=== PATIENT | male | born 1965 | race Caucasian/White ===

== ENCOUNTER → 2024-06-17 16:50 | Outpatient (REF) | payer OTHER, SELFPAY | LOC: RAD 16:50 | PROVIDERS: ATTENDING PHYSICIAN Family Medicine | DX: Z87.891 Personal history of nicotine dependence (principal); E78.2 Mixed hyperlipidemia; Z72.0 Tobacco use | CPT/HCPCS: 71271 ==

== ENCOUNTER → 2024-10-27 06:17 | Day surgery (SDC) | payer OTHER, SELFPAY | LOC: GI 06:17 | PROVIDERS: ATTENDING PHYSICIAN Internal Medicine; FAMILY PHYSICIAN Family Medicine | DX: Z12.11 Encounter for screening for malignant neoplasm of colon (principal); K64.8 Other hemorrhoids; K57.30 Diverticulosis of large intestine without perforation or abscess without bleeding; Z86.0100 Personal history of colon polyps, unspecified | CPT/HCPCS: G0105 ==

== ENCOUNTER → 2025-02-19 17:19 | Outpatient (REF) | payer OTHER, SELFPAY | LOC: RAD 17:19 | PROVIDERS: ATTENDING PHYSICIAN Family Medicine | DX: R59.1 Generalized enlarged lymph nodes (principal); N28.1 Cyst of kidney, acquired; R31.9 Hematuria, unspecified | CPT/HCPCS: 76882 ==

== ENCOUNTER → 2025-03-05 15:03 | Outpatient (REF) | payer OTHER, SELFPAY | LOC: RAD 15:03 | PROVIDERS: ATTENDING PHYSICIAN Family Medicine | DX: N28.1 Cyst of kidney, acquired (principal); R31.9 Hematuria, unspecified; R59.1 Generalized enlarged lymph nodes | CPT/HCPCS: 76770 ==

== ENCOUNTER → 2025-03-17 13:43 | Outpatient (REF) | payer OTHER, SELFPAY | LOC: RAD 13:43 | PROVIDERS: ATTENDING PHYSICIAN Family Medicine | DX: N50.812 Left testicular pain (principal) | CPT/HCPCS: 76870; 93976 ==

== ENCOUNTER 2025-03-19 08:20 | Emergency (ER) | payer OTHER, SELFPAY ==
[2025-03-19 08:27] VITALS: BP 131/93
--- NOTE | 2025-03-19 09:12 | ED.GENMED ---
History of Present Illness
General
Chief Complaint: Swelling
Source: patient
Exam Limitations: none
Time Seen by Provider: 03/19/25 08:40
Nursing documentation reviewed up to this point in time: agreed with
History of Present Illness
History of Present Illness:
Pt is a 59 yr old with past history prostate cancer presents to the ER for evaluation. Patient reports the past 6 weeks he has had swollen lymph nodes in his bilateral groin. He had an ultrasound of his right groin several weeks ago and
completed several doses of antibiotics. His last round was last week. He reports he had an ultrasound of his scrotum on Sunday which was abnormal and is scheduled for an MRI next week. Patient reports today he has noticed increasing discomfort
to the swelling lymph nodes of his left groin and also has left testicle pain.
I reviewed the ultrasound of the scrotum from 2 days ago which does show prominent left epididymis with relative increased left epididymal flow suggesting left epididymitis. In addition there is mild heterogeneous appearance of the right testicle
and cannot exclude right testicular mass or other etiology such as a hematoma and MRI is recommended.
In addition patient complains of some right sided abdominal pain which is what prompted him to come actually come to the ER today.
He denies any associated nausea vomiting fever chills.
Past History
Past History
ED Past Medical History: Arrthythmia and CHF
ED Past Surgical History: Other
Social History
Tobacco: Non-smoker
Alcohol: Binge drinker
Drug: None
Personal:
Living: with family
Employment: Employed
Family History
Family History: Other
Review of Systems
Review of Systems
Allergies reviewed?: Yes
All Other Systems: ROS reviewed and negative except as documented in HPI and ROS
Constitutional: Reports no symptoms; Denies fever, fatigue or chills
EENT: Reports no symptoms
Respiratory: Reports no symptoms
ABD/GI: Reports other (Patient had an episode of right abdominal pain today that radiated to his back denies now.)
: Reports other (Left testicular ;discomfort bilateral groin lymph node swelling)
Musculoskeletal: Reports no symptoms
Phy Exam
General Physical Exam
General Presentation: no apparent distress
General age: appears stated age
General Skin: warm and dry
General Habitus: normal
General Mental: alert
General Hydration: appears well hydrated
Gastrointestinal Exam
Gastrointestinal Exam: normal bowel sounds, soft and other (small area of yellowish discoloration to right abd( possible old healing bruising ) mildly tender on exam no rebound no guarding )
Genitourinary Exam Male
Exam Male: circumcised, no discharge, no evidence of trauma and other (mild left testicular tenderness no obvious swelling , small b/l palpable lymph nodes to bilateral groin )
Neurological Exam
Neurological Exam: alert and oriented x3
Musculoskeletal Exam
Musculoskeletal Exam: full ROM
Skin Exam
Skin Exam: normal color and warm/dry
Psychiatric Exam
Psychiatric Exam: normal mood/affect
Scores
Heart Failure Risk
Heart Failure Risk Score: Not Applicable
Course
Orders/Labs/Results
Orders:
Orders
03/19/25 09:15
IV Insert/Care/Rem.- Treatment PRN
03/19/25 09:28
Complete Blood Count/With Diff Urgent
Comprehensive Metabolic Panel Urgent
03/19/25 10:17
CT Abd/pelvis W Iv Cont Urgent
Comment:
Reason For Exam: lymh node swelling/abd/r back pain
03/19/25 10:47
UA Reflex to Culture [Urinalysis Reflex To Culture] Urgent
Date Specimen was Collected: 03/19/25
Time Specimen was Collected: 10:34
Abnormal Lab Results
03/19/25
09:28
RBC 4.69 L 10^6/uL
(4.70-6.10)
Hct 38.9 L %
(39.0-52.0)
MPV 10.9 H fL
(7.4-10.4)
Monocytes % 10.5 H %
(1.7-9.3)
Eosinophils % 6.5 H %
(0-6)
Chloride 108 H mmol/L
(98-107)
Creatinine 0.6 L mg/dL
(0.7-1.3)
Glucose 100 H mg/dl
(70-99)
03/19/25 09:28
03/19/25 09:28
Vital Signs
Initial and Last Documented VS:
Initial Vital Signs
Temp Pulse Resp BP Pulse Ox
98.3 F 94 18 131/93 97
03/19/25 08:27 03/19/25 08:27 03/19/25 08:27 03/19/25 08:27 03/19/25 08:27
Last Documented Vital Signs
Temp Pulse Resp BP Pulse Ox
98.3 F 77 18 131/93 96
03/19/25 08:27 03/19/25 12:00 03/19/25 08:27 03/19/25 08:27 03/19/25 12:00
Parts Sales Manager consulted with Physician
Parts Sales Manager consulted with physician?: Yes
Name of Physician Consulted: Johana
MDM/Problems Addressed
MDM/Problems Addressed:
Patient is a 59-year-old male as documented has had swelling to his lymph nodes in his groin for the past several weeks. He was treated with 2 of antibiotics he believes 1 was a quinolone normal was a type of penicillin. He has completed both of
these antibiotics. In addition he has had left-sided testicle swelling. Patient saw his family doctor and is scheduled for an MRI next week but presented for some right-sided abdominal pain. I did review patient's outpatient ultrasound from March 17
which does show findings consistent with left epididymitis and additional findings of heterogeneous appearance of the right testicle patient will need MRI for this.
Patient denies any fever chills his white count is unremarkable, normal renal function negative UA.
CAT scan done here in the ER with no acute findings.
With recent ultrasound still showing epididymitis the left testicle will restart on any course of antibiotics. Case discussed ED physician will start on Bactrim with supportive underwear Tylenol as needed. Patient cannot take ibuprofen as he is on
anticoagulation. Discussed with patient follow-up with urology for this in addition he is to follow-up with his outpatient MRI
*Radiology
Radiology exam reviewed: radiology read reviewed
*Critical Care Note
Total Time (30-74mins, 75-104mins- exclusive of procedures): Not Applicable
Data Reviewed
Review of Other/Old Records Reveals: Radiology Studies (US of scrotum reviewed from 03/17/25 )
ED Attending Note
-
Portions of this chart may have been created with voice recognition software.� Occasional wrong word or��sound alike� substitutions may have occurred due to the inherent limitations of voice recognition software.
Discharge Plan
Departure
Patient Disposition: Home (Routine Discharge)
Date of Disposition: 03/19/25
Time of Disposition: 12:11
Patient with high blood pressure during this ER visit?: Yes
Condition: Fair
Covid-19: Not Applicable
Discharge Problem:
Left testicular pain, Acute epididymitis
Instructions: Epididymitis and orchitis
Prescriptions:
New
sulfamethoxazole-trimethoprim [Bactrim DS] 800-160 mg tablet
1 tab PO BID Qty: 20 0RF
No Action
rivaroxaban [Xarelto] 20 MG tablet
20 mg PO QPM Qty: 30 5RF
metoprolol succinate 25 MG tablet extended release 24 hr
25 mg PO HS Qty: 30 5RF
varenicline tartrate 0.5 MG tablet
1 mg PO BID
Referrals:
Chong Toro MD [Family Provider] -
Crispin Almazan MD [Active] -
Activity Restrictions/Additional Instructions:
As discussed you will be given a new antibiotic for treatment of recurrent epididymitis of left testicle. Please take as directed twice daily for the next 10 days. This prescription was sent to pharmacy.
In addition you may take Tylenol for discomfort. Please wear supportive underwear. Follow-up with your outpatient MRI as scheduled next week. Follow-up with urology please call to make an appointment soon as possible. Return if any worsening of
symptoms.
Interventions
Interventions:
*Risk Screen - Suicide Last Done: 03/19/25 08:27
*General Assessment Last Done: 03/19/25 08:27
*Neglect/Abuse Screening Last Done: 03/19/25 08:27
*ED- Fall Risk Assessment Last Done: 03/19/25 09:31
*ED COVID-19 Vaccine History Last Done: 03/19/25 09:31
ED- Cardiac Assessment Last Done: 03/19/25 12:16
ED- Pulmonary Assessment Last Done: 03/19/25 12:17
ED-Skin Assessment Last Done: 03/19/25 12:17
Discharge Date and Time
Print Language: FRISIAN
[2025-03-19 09:30] VITALS: BMI 25.6
[2025-03-19 09:40] LABS: % Basophils 1.1 % (0-2); % Eosinophils 6.5 % (0-6); % Immature Granulocytes 0.5 % (0-0.5); % Lymphocytes 25.3 % (20.5-51.1); % Monocytes 10.5 % (1.7-9.3); % Neutrophils 56.1 % (42.2-75.2); Absolute Basophils 0.1 10^3/uL (0-0.2); Absolute Eosinophils 0.4 10^3/uL (0-0.7); Absolute Lymphocytes 1.4 10^3/uL (1.2-3.4); Absolute Monocytes 0.6 10^3/uL (0.1-0.6); Absolute Neutrophils 3.2 10^3/uL (1.4-6.5); Hematocrit 38.9 % (39.0-52.0); Hemoglobin 13.5 g/dL (13.0-18.0); Mean Corp Hgb Conc. 34.7 g/dL (33.0-37.0); Mean Corpuscular Hgb 28.8 pg (27.0-31.0); Mean Corpuscular Volume 82.9 fL (80.0-94.0); Mean Platelet Volume 10.9 fL (7.4-10.4); Nucleated Red Blood Cells % 0 % (-); Platelet Count 228 10^3/uL (130-400); Red Blood Cell Count 4.69 10^6/uL (4.70-6.10); Red Cell Dist. Width 13.5 % (11.5-14.5); White Blood Cell Count 5.7 10^3/uL (4.8-10.8)
[2025-03-19 09:58] LABS: ALT (SGPT) 18 U/L (0-50); AST (SGOT) 21 U/L (17-59); Alkaline Phosphatase 95 U/L (38-126); Blood Urea Nitrogen 13 mg/dl (9-20); Calcium 9.2 mg/dl (8.4-10.2); Carbon Dioxide 25 mmol/L (22-30); Chloride 108 mmol/L (98-107); Estimated Creatinine Clearance > 125 ml/min; Glucose 100 mg/dl (70-99); Potassium 4.3 mmol/L (3.5-5.1); Sodium 138 mmol/L (135-145); Total Bilirubin 0.7 mg/dl (0.2-1.3); Total Protein 6.6 g/dl (6.3-8.2); eGFR > 60.00
[2025-03-19 11:09] LABS: Urine Albumin Negative (Neg - Trace); Urine Bilirubin Negative (Negative); Urine Character Clear (Clear); Urine Color Yellow; Urine Glucose Negative (Negative); Urine Ketone Negative (Negative); Urine Leukocyte Negative (Negative); Urine Nitrite Negative (Negative); Urine Occult Blood Negative (Negative); Urine Urobilinogen Negative (Neg - 1+); Urine pH 6.5 (5.0-9.0)
== END 2025-03-19 13:07 | disposition home or self-care (01) ==
LOC: EMR 08:20
PROVIDERS: Nurse Practitioner; EMERGENCY PHYSICIAN Emergency Medicine; FAMILY PHYSICIAN Family Medicine
DX: N50.812 Left testicular pain (principal); N45.1 Epididymitis; I50.9 Heart failure, unspecified; Z85.46 Personal history of malignant neoplasm of prostate; Z79.01 Long term (current) use of anticoagulants
CPT/HCPCS: 99284; 74177; 80053; 81003; 85025; Q9967

== ENCOUNTER → 2025-03-26 18:29 | Outpatient (REF) | payer OTHER, SELFPAY | LOC: MRI 3T 18:29 | PROVIDERS: ATTENDING PHYSICIAN Family Medicine | DX: R93.811 Abnormal radiologic findings on diagnostic imaging of right testicle (principal); N50.819 Testicular pain, unspecified; Z85.46 Personal history of malignant neoplasm of prostate | CPT/HCPCS: 72197 ==

== ENCOUNTER → 2025-06-23 14:52 | Outpatient (REF) | payer OTHER, SELFPAY | LOC: HWRAD 14:52 | PROVIDERS: ATTENDING PHYSICIAN Family Medicine | DX: F17.210 Nicotine dependence, cigarettes, uncomplicated (principal) | CPT/HCPCS: 71271 ==

== ENCOUNTER → 2025-09-30 16:19 | Outpatient (REF) | payer OTHER, SELFPAY | LOC: RAD 16:19 | PROVIDERS: ATTENDING PHYSICIAN Family Medicine | DX: R59.0 Localized enlarged lymph nodes (principal) | CPT/HCPCS: 76882 ==